=== PATIENT | female | born 1990 | race African-American/Black ===

== ENCOUNTER 2017-04-12 17:26 | Emergency (ER) | payer OTHER ==
[~2017-04-12] VITALS: Ht 170.2 cm; Wt 84.4 kg
[~2017-04-12 17:26] MED LIST: AMOXICILLIN875 MG PO; FLEXERIL PO; IBUPROFEN 800800 MG PO; NOHOMEMEDICATIONS; PREDNISONE 20 M20 M1 PO; PRENATAL PO; PRENATAL VITAM1 EAC6 PO; VENTOLIN HFA 1818 GM INH
[2017-04-12 17:44] LABS: URINE BILIRUBIN NEGATIVE (Negative); URINE BLOOD NEGATIVE (Negative); URINE COLOR YELLOW; URINE GLUCOSE-RANDOM* NEGATIVE (Negative); URINE KETONES NEGATIVE (Negative); URINE LEUKOCYTES-REFLEX NEGATIVE (Negative); URINE PROTEIN (DIPSTICK) TRACE (Negative); URINE SPECIFIC GRAVITY >= 1.030 (1.003-1.035); URINE UROBILINOGEN 0.2 E.U./dl (0.2-1.0)
[2017-04-12] MEDS ORDERED: PRENATAL PO (18:01)
[2017-04-12 19:10] VITALS: BP 109/56
== END 2017-04-12 19:15 | disposition home or self-care (01) ==
LOC: ER 17:26
PROVIDERS: Emergency Medicine
DX: O26.892 Other specified pregnancy related conditions, second trimester (principal); J45.909 Unspecified asthma, uncomplicated; Z3A.26 26 weeks gestation of pregnancy